=== PATIENT | male | born 1955 | race Caucasian/White ===

== ENCOUNTER 2022-04-28 10:20 | Emergency (ER) | payer OTHER, SELFPAY ==
[2022-04-28 10:29] VITALS: BP 156/96; PULSE 92; RESP 16; TEMP 36.8; O2SAT 97
--- NOTE | 2022-04-28 11:07 | ED.URI ---
HPI - URI/Sore Throat General Chief Complaint: Upper Respiratory Infection Stated Complaint: fever ache cough Time Seen by Provider: 04/28/22 11:08 Source: patient, RN notes reviewed and old records reviewed Mode of arrival: ambulatory Limitations: no limitations History of Present Illness HPI Narrative: 66-year-old male presents to the [facility] with complaints of fever, body aches and cough since 6:00 a.m. States that he took Tylenol. was exposed to the flu on Thursday. MD elicited complaint: fever Onset (ago): hour(s) (4) Relieving factors: nothing Treatments prior to arrival: none Related Data Home Medications Medication Instructions Recorded Confirmed atorvastatin 40 mg tablet mg 04/28/22 lisinopril 10 mg tablet mg 04/28/22 metoprolol succinate 25 mg mg PO 04/28/22 tablet,extended release 24 hr Allergies Allergy/AdvReac Type Severity Reaction Status Date / Time Sulfa (Sulfonamide Allergy Rash Verified 04/28/22 10:27 Antibiotics) Review of Systems Review of Systems: All systems reviewed & are unremarkable except as noted in HPI and below Constitutional: Constitutional: Reports as per HPI, Reports body ache(s), Denies chills, Reports fever(s) and Denies headache(s) Eyes: Eyes: Reports no additional eye complaints ENT: Reports system reviewed and no additional complaints, except as documented and Denies headache(s) Cardiovascular: Cardiovascular: Reports no additional cardiovascular complaints, Denies chest pain and Denies dyspnea Respiratory: Respiratory: Reports as per HPI, Denies chest congestion, Reports cough, Denies dyspnea and Denies wheezing Gastrointestinal: Gastrointestinal: Reports no additional gastrointestinal complaints and Denies abdominal pain Musculoskeletal: Musculoskeletal: Reports no additional musculoskeletal complaints Integumentary/Breasts: Skin/Breast: Reports system reviewed and no additional complaints, except as docu Neurologic: Reports system reviewed and no additional complaints, except as documented and Denies headache(s) Psychiatric: Psychiatric: Reports no additional psychiatric complaints Allergic/Immunologic: Allergic/Immunologic: Reports no additional allergic/immunologic complaints PMFSH Past Medical History Medical History High cholesterol History of high blood pressure Comments At the time of my signature, I reviewed and agree with the nursing past medical, surgical, social, and family history. There is no relevant family history pertinent to the patient complaint. Exam Const: General: cooperative, healthy appearing, comfortable, no acute distress, well developed, alert and well nourished Nutritional Appearance: well nourished and obese Orientation/consciousness: patient oriented x3 Limitations: no limitations HENMT: Head: normal to inspection Ears: external ears normal Face/Nose/Sinus: Normal external nose present, Normal nares present, Normal nasal mucous membranes and turbinates present and normal facial exam Face and sinus: normal facial exam Mouth: Yes Normal oral and palatal mucosa present, Yes lip normal and Yes moist mucous membranes abnormal Throat: posterior oropharynx normal and uvula midline Eyes: General: appearance normal, both eyes and all related structures Alignment and Position: alignment normal Conjunctivae: conjunctivae normal Pupils: Equal, round and reactive pupils present Neck: Neck: normal visual inspection, full ROM, no lymphadenopathy and no meningeal signs Chest: Chest palpation & inspection: normal inspection of the chest Resp: Effort & Inspection: normal respiratory effort and no use of accessory muscles Auscultation: clear to auscultation bilaterally, no crackles, no rales, no rhonchi and no wheezes Cardio: Rate: regular rate Rhythm: regular rhythm Back/Spine/Pelvis: Cervical Spine: cervical ROM normal and No Cervical spine tenderness Thoracic/Lumbar
== END 2022-04-28 11:20 | disposition home or self-care (01) ==
PROVIDERS: Emergency Provider Nurse Practitioner
DX: B34.9 Viral infection, unspecified (principal)
CPT/HCPCS: 99202; G0463

== ENCOUNTER 2022-05-03 12:52 | Emergency (ER) | payer OTHER, SELFPAY ==
--- NOTE | ~2022-05-03 | XR_ITS ---
EXAMINATION: XR chest 2V 05/03/2022 13:26 INDICATION: Persistent cough PROCEDURE: 2 view chest COMPARISON: 10/12/2007 FINDINGS: The lungs are clear. The cardiomediastinal silhouette is within normal limits. There are no pleural effusions. There is no pneumothorax suspected. Status post median sternotomy for CABG. IMPRESSION: 1: NO ACUTE CARDIOPULMONARY DISEASE. Reviewed, dictated and finalized at location A. [employer]ING [employer]
[2022-05-03 13:00] VITALS: BP 148/93; PULSE 77; RESP 20; TEMP 36.7; O2SAT 98
--- NOTE | 2022-05-03 13:04 | ED.URI ---
HPI - URI/Sore Throat General Chief Complaint: Upper Respiratory Infection Stated Complaint: cant quit coughing Time Seen by Provider: 05/03/22 13:04 Source: patient and RN notes reviewed History of Present Illness HPI Narrative: patient is a 66-year-old male who presents to urgent care with complaints of persistent cough. Patient was seen at our facility on April 28 and diagnosed with possible influenza. Patient states that most of his other symptoms have subsided and he has not had a fever for the last several days. Patient reports of shortness of breath with coughing fits. Patient denies any nausea or vomiting. Denies of chest pains. Patient has been taking Mucinex and NyQuil. No other acute complaints. No acute distress noted. Patient aware of the plan of care. Some parts of this dictation were generated by voice recognition software and may contain typographical and/or grammatical inaccuracies. Related Data Home Medications Medication Instructions Recorded Confirmed atorvastatin 40 mg tablet 40 mg PO DAILY 04/28/22 lisinopril 10 mg tablet 10 mg PO DAILY 04/28/22 metoprolol succinate 25 mg 25 mg PO DAILY 04/28/22 tablet,extended release 24 hr Allergies Allergy/AdvReac Type Severity Reaction Status Date / Time Sulfa (Sulfonamide Allergy Rash Verified 05/03/22 13:14 Antibiotics) Review of Systems Review of Systems: CONSTITUTIONAL: Denies fever, chills, or sweats. EYES: Denies visual changes, redness, or discharge. ENT: Denies rhinorrhea, congestion, sore throat, or otalgia. CARDIOVASCULAR: Denies chest pain, palpitations, or edema. RESPIRATORY: Reports a persistent cough with dyspnea GASTROINTESTINAL: Denies abdominal pain, nausea, vomiting, or diarrhea. GENITOURINARY: Denies dysuria or hematuria. SKIN: Denies rash or itching. MUSCULOSKELETAL: Denies back pain, joint pain, or myalgia. NEUROLOGIC: Denies headache, numbness, or weakness. All other systems reviewed are negative, except as documented in HPI. COUNTS INCLUDE 234 BEDS AT THE [facility] Past Medical History Medical History High cholesterol History of high blood pressure Comments At the time of my signature, I reviewed and agree with the nursing past medical, surgical, social, and family history. There is no relevant family history pertinent to the patient complaint. Exam Narrative: GENERAL: This is a well-nourished, well-developed patient, in no apparent distress. HEAD: normocephalic, atraumatic. EYES: PERRL. Sclera clear/white. Vision is grossly intact. EARS: External ears normal, auditory canals clear and without drainage, TMs normal without perforation. Hearing grossly intact. NOSE: External nose normal with no obvious nasal discharge, nares without redness, clear rhinorrhea. THROAT: Mucous membranes moist, posterior pharynx clear. moderate postnasal drainage NECK: Neck supple RESPIRATORY: persistent harsh cough noted on exam. Slight crackles bibasilar SKIN: warm, intact with no suspicious lesions or rash, good texture and turgor. NEURO: awake, alert, and oriented to person, place and time. There were no obvious focal neurologic abnormalities. EXTREMITIES: No clubbing, cyanosis, or edema. Course Course Level of Care: Express Care Visit Vital Signs Vital signs: Vital Signs Temperature 98.0 F 05/03/22 13:00 Pulse Rate 77 05/03/22 13:00 Respiratory Rate 20 05/03/22 13:00 Blood Pressure 148/93 H 05/03/22 13:00 Pulse Oximetry 98 05/03/22 13:00 Oxygen Delivery Room Air 05/03/22 13:00 Temperature 98.0 F 05/03/22 13:00 Pulse Rate 77 05/03/22 13:00 Respiratory Rate 20 05/03/22 13:00 Blood Pressure 148/93 H 05/03/22 13:00 Pulse Oximetry 98 05/03/22 13:00 Oxygen Delivery Room Air 05/03/22 13:00 reviewed- Patient is informed that they may have pre-hypertension or hypertension based on a blood pressure reading in the department. I recommend the patient ca
== END 2022-05-03 13:45 | disposition home or self-care (01) ==
PROVIDERS: Emergency Provider Nurse Practitioner Family
DX: R05.9 Cough, unspecified (principal); E78.00 Pure hypercholesterolemia, unspecified; I10 Essential (primary) hypertension
CPT/HCPCS: 71046; 99213; G0463